=== PATIENT | female | born 1975 | race Caucasian/White ===

== ENCOUNTER → 2023-08-05 12:47 | Outpatient (REF) | payer BC, SELFPAY | LOC: HWRAD 12:47 | PROVIDERS: ATTENDING PHYSICIAN Urology; FAMILY PHYSICIAN Nurse Practitioner Family | DX: N39.3 Stress incontinence (female) (male) (principal); N39.41 Urge incontinence; M62.89 Other specified disorders of muscle; N30.10 Interstitial cystitis (chronic) without hematuria; R31.29 Other microscopic hematuria; N80.9 Endometriosis, unspecified | CPT/HCPCS: 76770; 76856 ==

== ENCOUNTER → 2024-06-01 11:20 | Outpatient (REF) | payer OTHER, SELFPAY | LOC: MRI 3T 11:20 | PROVIDERS: ATTENDING PHYSICIAN Physician Assistant; FAMILY PHYSICIAN Family Medicine | DX: M54.16 Radiculopathy, lumbar region (principal) | CPT/HCPCS: 72148 ==

== ENCOUNTER → 2024-06-15 09:08 | Outpatient (REF) | payer OTHER, SELFPAY | LOC: HWWDC 09:08 | PROVIDERS: ATTENDING PHYSICIAN Nurse Practitioner Family; FAMILY PHYSICIAN Family Medicine | DX: Z12.31 Encounter for screening mammogram for malignant neoplasm of breast (principal) | CPT/HCPCS: 77063; 77067 ==